=== PATIENT | male | born 2000 | race Caucasian/White ===

== ENCOUNTER 2020-08-14 13:46 | Emergency (ER) | payer OTHER ==
[~2020-08-14] VITALS: Ht 175.3 cm; Wt 73.0 kg
[2020-08-14] MEDS ORDERED: KETOROLAC 30MG/ML VIAL IM ONE (15:30)
[2020-08-14 15:41] VITALS: BP 128/93
== END 2020-08-14 16:00 | disposition left against medical advice (07) ==
LOC: ER 13:46
DX: M54.5 Low back pain (principal)
CPT/HCPCS: 96372; 99283; J1885